=== PATIENT | female | born 1955 | race Caucasian/White ===

== ENCOUNTER 2017-07-09 05:48 | Inpatient (IN) | payer BC ==
--- NOTE | 2017-07-09 06:03 | ED ---
General Adult HPI - General Source: patient, RN notes reviewed, old records reviewed Mode of arrival: wheelchair Limitations: no limitations <Jeff Melgoza - Last Filed: 07/09/17 06:10> <Angel Keys - Last Filed: 07/09/17 08:24> - General Chief complaint: Chest Pain Stated complaint: Chest pain, nausea Time Seen by Provider: 07/09/17 06:02 - History of Present Illness Initial comments: This is a 61-year-old female who presents today with evaluation regards to chest pain and back pain. Patient is history of high cholesterol no history of smoking. Patient denies any other heart history. She was evaluated with her heart years ago greater than 10 years ago with no findings, check CAT scan at the time. Patient states symptoms have been episodic for 3 days. Patient gets pain in the left side of her chest radiating to her back mild nausea some clamminess. Patient states again symptoms are episodic with no modifying factors. Patient is about to travel to [place] currently and which brings her to the ER today because she wanted to be checked out before getting in a car. Patient at this time states her symptoms are mild is gone (Jeff Melgoza) - Related Data Previous Rx's Medication Instructions Recorded Famotidine [Pepcid] 20 mg PO DAILY #14 tablet 11/28/14 Allergies Allergy/AdvReac Type Severity Reaction Status Date / Time No Known Allergies Allergy Verified 11/27/14 23:21 Review of Systems ROS Other: All systems not noted in ROS Statement are negative. <Jeff Melgoza - Last Filed: 07/09/17 06:10> ROS Other: All systems not noted in ROS Statement are negative. <Angel Keys - Last Filed: 07/09/17 08:24> ROS Statement: Those systems with pertinent positive or pertinent negative responses have been documented in the HPI. Past Medical History Past Medical History: No Reported History, Hyperlipidemia History of Any Multi-Drug Resistant Organisms: None Reported Past Surgical History: Appendectomy, Section Past Psychological History: No Psychological Hx Reported Smoking Status: Never smoker Past Alcohol Use History: None Reported Past Drug Use History: None Reported <Jeff Melgoza - Last Filed: 07/09/17 06:10> General Exam Limitations: no limitations General appearance: alert, in no apparent distress Head exam: Present: atraumatic, normocephalic, normal inspection Eye exam: Present: normal appearance, PERRL, EOMI. Absent: scleral icterus, conjunctival injection, periorbital swelling ENT exam: Present: normal exam, mucous membranes moist Neck exam: Present: normal inspection. Absent: tenderness, meningismus, lymphadenopathy Respiratory exam: Present: normal lung sounds bilaterally. Absent: respiratory distress, wheezes, rales, rhonchi, stridor Cardiovascular Exam: Present: regular rate, normal rhythm, normal heart sounds. Absent: systolic murmur, diastolic murmur, rubs, gallop, clicks GI/Abdominal exam: Present: soft, normal bowel sounds. Absent: distended, tenderness, guarding, rebound, rigid Extremities exam: Present: normal inspection, full ROM, normal capillary refill. Absent: tenderness, pedal edema, joint swelling, calf tenderness Back exam: Present: normal inspection Neurological exam: Present: alert, oriented X3, CN II-XII intact Psychiatric exam: Present: normal affect, normal mood Skin exam: Present: warm, dry, intact, normal color. Absent: rash <Jeff Melgoza - Last Filed: 07/09/17 06:10> Vital Signs 07/09/17 07/09/17 07/09/17 05:50 06:26 06:28 Temperature 96.9 F L Pulse Rate 63 70 70 Respiratory 16 18 18 Rate Blood Pressure 171/83 179/89 176/80 O2 Sat by Pulse 98 100 100 Oximetry 07/09/17 07:06 Temperature Pulse Rate 77 Respiratory 18 Rate Blood Pressure 159/79 O2 Sat by Pulse 100 Oximetry EKG Findings - EKG Comments: EKG Findings:: EKG shows normal sinus rhythm rate of 71, VA 188, QRS 88, QTC 4 to <Jeff Melgoza - Last Filed: 07/09/17 06:10> Medical Decision Making <Jeff Melgoza - Last Filed: 07/09/17 06:10> - Lab Data Result diagrams: 07/09/17 06:05 07/09/17 06:05 <Angel Keys - Last Filed: 07/09/17 08:24> - Medical Decision Making Old female presenting with 3 days of chest pain and back pain. Pain is associated with nausea. Patient has no known coronary artery history herself, she does have a very strong family history, including a brother at the age of 36. Patient's blood pressure elevated on initial presentation with chest and back pain, CT angiography is obtained for dissection, this is negative for dissection or pulmonary embolism. EKG no signs of definitive ischemia. Although patient is pain-free at the time of reevaluation. Laboratory studies reveal white blood cell count 7.2, hemoglobin stable, electrolytes within normal limits, troponin is negative. Patient's symptoms are concerning for angina and given her family history she will be kept for serial cardiac enzymes and cardiology consult. (Angel Keys) - Lab Data Lab Results 07/09/17 07/09/17 07/09/17 Range/Units 06:05 06:05 06:05 WBC 7.2 (3.8-10.6) k/uL RBC 5.03 (3.80-5.40) m/uL Hgb 14.9 (11.4-16.0) gm/dL Hct 42.5 (34.0-46.0) % MCV 84.6 (80.0-100.0) fL MCH 29.7 (25.0-35.0) pg MCHC 35.1 (31.0-37.0) g/dL RDW 11.9 (11.5-15.5) % Plt Count 264 (150-450) k/uL Neutrophils % 65 % Lymphocytes % 28 % Monocytes % 5 % Eosinophils % 1 % Basophils % 0 % Neutrophils # 4.7 (1.3-7.7) k/uL Lymphocytes # 2.0 (1.0-4.8) k/uL Monocytes # 0.3 (0-1.0) k/uL Eosinophils # 0.0 (0-0.7) k/uL Basophils # 0.0 (0-0.2) k/uL PT (9.0-12.0) sec INR (<1.2) APTT (22.0-30.0) sec D-Dimer (<0.60) mg/L FEU Sodium 145 (137-145) mmol/L Potassium 4.0 (3.5-5.1) mmol/L Chloride 106 (98-107) mmol/L Carbon Dioxide 26 (22-30) mmol/L Anion Gap 13 mmol/L BUN 19 H (7-17) mg/dL Creatinine 0.79 (0.52-1.04) mg/dL Est GFR (CKD-EPI)AfAm >90 (>60 ml/min/1.73 sqM) Est GFR (CKD-EPI)NonAf 82 (>60 ml/min/1.73 sqM) Glucose 126 H (74-99) mg/dL Calcium 9.7 (8.4-10.2) mg/dL Magnesium 2.0 (1.6-2.3) mg/dL Total Bilirubin 0.7 (0.2-1.3) mg/dL AST 20 (14-36) U/L ALT 29 (9-52) U/L Alkaline Phosphatase 46 (38-126) U/L Total Creatine Kinase 86 (30-135) U/L CK-MB (CK-2) 0.9 (0.0-2.4) ng/mL CK-MB (CK-2) Rel Index 1.0 Troponin I <0.012 (0.000-0.034) ng/mL NT-Pro-B Natriuret Pep pg/mL Total Protein 7.2 (6.3-8.2) g/dL Albumin 4.3 (3.5-5.0) g/dL Lipase 147 (23-300) U/L 07/09/17 07/09/17 Range/Units 06:05 06:05 WBC (3.8-10.6) k/uL RBC (3.80-5.40) m/uL Hgb (11.4-16.0) gm/dL Hct (34.0-46.0) % MCV (80.0-100.0) fL MCH (25.0-35.0) pg MCHC (31.0-37.0) g/dL RDW (11.5-15.5) % Plt Count (150-450) k/uL Neutrophils % % Lymphocytes % % Monocytes % % Eosinophils % % Basophils % % Neutrophils # (1.3-7.7) k/uL Lymphocytes # (1.0-4.8) k/uL Monocytes # (0-1.0) k/uL Eosinophils # (0-0.7) k/uL Basophils # (0-0.2) k/uL PT 10.2 (9.0-12.0) sec INR 1.0 (<1.2) APTT 22.8 (22.0-30.0) sec D-Dimer 1.73 H (<0.60) mg/L FEU Sodium (137-145) mmol/L Potassium (3.5-5.1) mmol/L Chloride (98-107) mmol/L Carbon Dioxide (22-30) mmol/L Anion Gap mmol/L BUN (7-17) mg/dL Creatinine (0.52-1.04) mg/dL Est GFR (CKD-EPI)AfAm (>60 ml/min/1.73 sqM) Est GFR (CKD-EPI)NonAf (>60 ml/min/1.73 sqM) Glucose (74-99) mg/dL Calcium (8.4-10.2) mg/dL Magnesium (1.6-2.3) mg/dL Total Bilirubin (0.2-1.3) mg/dL AST (14-36) U/L ALT (9-52) U/L Alkaline Phosphatase (38-126) U/L Total Creatine Kinase (30-135) U/L CK-MB (CK-2) (0.0-2.4) ng/mL CK-MB (CK-2) Rel Index Troponin I (0.000-0.034) ng/mL NT-Pro-B Natriuret Pep 108 pg/mL Total Protein (6.3-8.2) g/dL Albumin (3.5-5.0) g/dL Lipase (23-300) U/L Disposition <Jeff Melgoza - Last Filed: 07/09/17 06:10> Decision to Admit Reason: Admit from EC Decision Date: 07/09/17 Decision Time: 08:24 <Angel Keys - Last Filed: 07/09/17 08:24> Clinical Impression: Chest pain Disposition: ADMITTED IP TO THIS HOSP Condition: Stable Referrals: Greyson Schaefer DO [Primary Care Provider] - 1-2 days
[2017-07-09] MEDS ORDERED: RX INFO: IV CONTRAST WAS GIVEN 1 EACH MISC MISCELLANE PRN ×2 (06:09→06:58)
[2017-07-09] MEDS ORDERED: SODIUM CHLORIDE 0.9% 1,000 ML IV STA ×2 (06:09)
[2017-07-09] MEDS ORDERED: LABETALOL 5 MG/ML VIAL MDV IVP STA (06:12)
[2017-07-09 06:37] LABS: Basophils % (A) 0 %; Eosinophils % (A) 1 %; HCT 42.5 % (34.0-46.0); HGB 14.9 gm/dL (11.4-16.0); Lymphocytes % (A) 28 %; MCH 29.7 pg (25.0-35.0); MCHC 35.1 g/dL (31.0-37.0); MCV 84.6 fL (80.0-100.0); Mean Platelet Volume 6.9; Monocytes # (A) 0.3 k/uL (0-1.0); Monocytes % (A) 5 %; Neutrophils # (A) 4.7 k/uL (1.3-7.7); Neutrophils % (A) 65 %; Platelet Count 264 k/uL (150-450); RBC 5.03 m/uL (3.80-5.40); RDW 11.9 % (11.5-15.5); WBC 7.2 k/uL (3.8-10.6)
[2017-07-09 06:50] LABS: D-Dimer 1.73 mg/L FEU (<0.60); Partial Thromboplastin Time 22.8 sec (22.0-30.0); Prothrombin Time 10.2 sec (9.0-12.0)
[2017-07-09 06:58] LABS: ALT 29 U/L (9-52); AST 20 U/L (14-36); Albumin 4.3 g/dL (3.5-5.0); Alkaline Phosphatase 46 U/L (38-126); Anion Gap 13 mmol/L; Blood Urea Nitrogen 19 mg/dL (7-17); Calcium 9.7 mg/dL (8.4-10.2); Carbon Dioxide 26 mmol/L (22-30); Chloride 106 mmol/L (98-107); Glucose 126 mg/dL (74-99); Lipase 147 U/L (23-300); Sodium 145 mmol/L (137-145); Total Bilirubin 0.7 mg/dL (0.2-1.3); Total Protein 7.2 g/dL (6.3-8.2)
[2017-07-09 07:04] LABS: Creatine Kinase 86 U/L (30-135)
[2017-07-09 07:16] LABS: Creatine Kinase MB 0.9 ng/mL (0.0-2.4); Troponin I <0.012 ng/mL (0.000-0.034)
--- NOTE | 2017-07-09 08:02 | CT ---
EXAMINATION TYPE: CT angio chest DATE OF EXAM: 07/09/2017 COMPARISON: CTA chest November 28, 2014. HISTORY: chest pain with elevated d-dimer. CT DLP: 228.1 mGycm. Automated Exposure Control for Dose Reduction was Utilized. CONTRAST: CTA scan of the thorax is performed with IV Contrast, patient injected with 100 mL of Omnipaque 350, pulmonary embolism protocol. MIP Images are created on CT scanner and reviewed. FINDINGS: LUNGS: There is persistent left basilar linear scarring. There is no new suspicious focal consolidati on or groundglass opacity. No pleural effusion or pneumothorax is seen bilaterally. No suspicious par enchymal nodule or mass is identified. Tracheobronchial tree is patent. MEDIASTINUM: There is slightly suboptimal bolus with near equal contrast the right and left heart sys tems but there is no CT evidence for pulmonary embolism. There are no greater than 1 cm hilar or med iastinal lymph nodes. No cardiomegaly or pericardial effusion is seen. There is 4 vessel aortic arc h which is normal variant redemonstrated. OTHER: Please refer to same day CT abdomen and pelvis report for complete details of the upper abdome n. There is mild to moderate multilevel spurring in the visualized thoracic spine. IMPRESSION: No CT evidence for acute pulmonary embolism. No suspicious acute pulmonary process.
--- NOTE | 2017-07-09 08:10 | CT ---
EXAMINATION TYPE: CT abdomen pelvis w con DATE OF EXAM: 07/09/2017 HISTORY: LLQ pain CT DLP: 1384.2mGycm Automated Exposure Control for Dose Reduction was Utilized. CONTRAST: CT scan of the abdomen and pelvis is performed without oral and with IV Contrast, patient injected wi th 100 mL of Omnipaque 350. COMPARISON: MRI pelvis dated 05/28/2013. FINDINGS: LUNG BASES: Please refer to same day CT abdomen report for complete details. LIVER/GB: No significant abnormality is appreciated. PANCREAS: No significant abnormality is seen. SPLEEN: No significant abnormality is seen. ADRENALS: Subcentimeter nodular thickening to left adrenal gland is nonspecific but favors benign hyp erplasia. KIDNEYS: There is symmetric cortical medullary uptake and excretion from both kidneys without evidenc e of concerning renal mass or hydronephrosis. Bladder wall thickness is upper limits of normal. BOWEL: Evaluation bowel is slightly suboptimal secondary to lack of enteric contrast. There is no chris picious small or large bowel dilatation. There is no significant colonic diverticulosis or convincing CT evidence for acute diverticulitis. UTERUS/ADNEXA: There is heterogeneous anteverted uterus with lobulation as well as calcification, und erlying fibroids are suspected and confirmed on prior pelvic MRI. LYMPH NODES: No greater than 1cm abdominal or pelvic lymph nodes are appreciated. OSSEOUS STRUCTURES: There is redemonstration of lumbosacral bilateral multilevel nerve sheath dural e ctasia or meningoceles extending into the presacral space. No significant change from prior pelvic MR I. OTHER: No significant additional abnormality is seen. IMPRESSION: No significant new or acute finding is seen to account for patient's clinical symptoms.
[2017-07-09] MEDS ORDERED: ASPIRIN 325 MG TAB PO STA (08:23)
[2017-07-09] MEDS ORDERED: ONDANSETRON 4 MG/2 ML VIAL IVP PRN (08:24)
[2017-07-09] MEDS ORDERED: NALOXONE 0.4 MG/ML 1 ML VIAL IV PRN (08:24)
[2017-07-09 11:59] LABS: Creatine Kinase 68 U/L (30-135)
[2017-07-09 12:11] LABS: Creatine Kinase MB 0.6 ng/mL (0.0-2.4); Troponin I <0.012 ng/mL (0.000-0.034)
--- NOTE | 2017-07-09 12:46 | CONS ---
CONSULTATION This patient is a 61-year-old female who has been experiencing recurrent interscapular discomfort and vague discomfort in the chest for the last 2-3 days. She came in today because she was getting a bit worried, as she had to go to [place] and take a long car ride. Her first 12-lead ECG showed sinus rhythm without any definite ST-segment abnormalities. Her chest CT did not show any evidence for pulmonary embolism. She does have gallstones. LABS: Reviewed. Hemoglobin is normal. Her D-dimer was elevated. First cardiac enzyme is normal. Amylase and lipase are normal. Liver function tests are normal. Glucose is elevated at 126. REVIEW OF SYSTEMS: No fever, chills or rigors. No cough or expectoration. No nausea, vomiting or diarrhea. No hematuria or dysuria. No strokes or seizures. No skin lesions. No musculoskeletal complaints. PAST HISTORY: 1. Pre-diabetes. 2. Dyslipidemia. Recently started on Pravachol and dose was increased recently to 20 mg p.o. daily. HOME MEDICATIONS: 1. Famotidine. 2. Pravachol. ALLERGIES: NO KNOWN DRUG ALLERGIES. SOCIAL HISTORY: She has never been a smoker. PAST SURGERIES: 1. Appendectomy. 2. section. PHYSICAL EXAMINATION: Her blood pressure is elevated consistently 159/79 mmHg. Heart rate is in the 70s. Head and neck examination is normal. Heart sounds are normal. Lungs are clear on auscultation. Extremities are warm; no edema. IMPRESSION: 1. Atypical chest discomfort. First set of cardiac enzymes is normal. 2. Pre-diabetes. 3. The patient has dyslipidemia and is on Pravachol 20 mg p.o. daily. SUGGEST: A baby aspirin, atorvastatin 20 mg p.o. daily. Three sets of cardiac enzymes. Repeat ECG. Further recommendations to follow thereafter. MMODL / IJN: [id number] /
[2017-07-09] MEDS: ATORVASTATIN 20 MG TAB PO SCH (13:08)
--- NOTE | 2017-07-09 13:16 | HP ---
HISTORY AND PHYSICAL DATE OF ADMISSION: 07/09/2017 PRESENTING COMPLAINT: Chest pain. HISTORY OF PRESENTING COMPLAINT: This is a very pleasant 61-year-old patient of Dr. Schaefer. Chronic stable medical conditions include hypercholesteremia. The patient noticed that she was having upper back discomfort with walking, even sometimes at rest, and occasionally anterior chest wall discomfort. Sometimes the two are unrelated. There is no shortness of breath. No dizziness. No lightheadedness. The patient did get some episodes of nausea and occasionally felt clammy. The patient was due to go to [place] this morning, and because of these symptoms coming on, she decided to come into the hospital. The patient is otherwise rather active with no prior cardiac history. She came in with her . The patient has a strong family history. REVIEW OF SYSTEMS: CONSTITUTIONAL: None. HEENT: None. RESPIRATORY: None. CARDIOVASCULAR: As above. GASTROINTESTINAL: None. GENITOURINARY: None. MUSCULOSKELETAL: None. DERMATOLOGICAL: None. HEMATOLOGICAL: None. LYMPHATICS: None. PSYCHIATRY: None. NEUROLOGICAL: None. PAST MEDICAL HISTORY: Hypercholesteremia. PAST SURGICAL HISTORY: 1. Appendectomy. 2. . SOCIAL HISTORY: No smoking. No alcohol. The patient used to sell real estate. . FAMILY HISTORY: Both her parents had heart disease in their 60s. Brother heart disease age of 36. Additionally history of colon cancer and COPD. HOME MEDICATIONS: Pravachol 20 mg a day. ALLERGIES: NONE. PHYSICAL EXAMINATION: Temperature 97.9, pulse 71, respiration 14, blood pressure 136/69, pulse ox 97% on room air. GENERAL APPEARANCE: Average build, sitting up, comfortable. EYES: Pupils equal. Conjunctivae normal. HEENT: External appearance of nose and ears normal. Oral cavity normal. NECK: JVD not raised. Mass not palpable. RESPIRATORY: Effort normal. Lungs are clear. CARDIOVASCULAR: First and second sounds normal. No edema. ABDOMEN: Soft, nontender. Liver and spleen not palpable. LYMPHATIC: No lymph node palpable in neck or axillae. PSYCHIATRY: Alert and oriented x3. Mood and affect normal. NEUROLOGICAL: Pupils clear. Cranial nerves grossly intact. Power and sensation grossly intact. INVESTIGATIONS: White count 7.2, hemoglobin 14.9, potassium 4.0, BUN 19, creatinine 0.79. Troponin x2 negative. EKG normal sinus rhythm. Chest CTA negative for PE. ASSESSMENT: Possible unstable angina in a patient whose cardiac risk factors include her age, strong family history and hypercholesteremia. These symptoms are new onset. Currently free of chest pain. PLAN: The patient is on aspirin, Lipitor. Cardiology Dr. Sánchez was consulted. The patient will need a stress test at some point. Care was discussed in detail with the patient and her . Questions were answered. MMODL / IJN: [id number] /
[2017-07-09] MEDS: ENOXAPARIN 40 MG/0.4 ML SYRINGE SQ SCH (14:10)
[2017-07-09 17:59] LABS: Creatine Kinase 66 U/L (30-135)
[2017-07-09 18:12] LABS: Creatine Kinase MB 0.6 ng/mL (0.0-2.4); Troponin I <0.012 ng/mL (0.000-0.034)
[2017-07-10] MEDS: ACETAMINOPHEN TAB 325 MG TAB PO PRN (08:22)
[2017-07-10] MEDS: ATORVASTATIN 20 MG TAB PO SCH (08:22)
[2017-07-10] MEDS: ASPIRIN 81 MG PO SCH (08:22)
[2017-07-10] MEDS: ENOXAPARIN 40 MG/0.4 ML SYRINGE SQ SCH (08:23)
--- NOTE | 2017-07-10 10:55 | P.PN ---
Subjective Progress Note Date: 07/10/17 Mrs. Merchant is seen today in follow-up. She has had no symptoms suggestive of angina. She has been up ambulating without difficulty. She denies any symptoms of shortness of breath, dizziness, palpitations, nausea, vomiting or diaphoresis. Cardiac enzymes are negative 3. Telemetry tracings up and unremarkable. Blood pressure 153/74 heart rate 71 afebrile maintaining oxygen saturation on room air GENERAL: Well-appearing, well-nourished and in no acute distress. NECK: Supple without JVD or thyromegaly. LUNGS: Breath sounds clear to auscultation bilaterally. Respiration equal and unlabored. No wheezes, rales or rhonchi. HEART: Regular rate and rhythm without murmurs, rubs or gallops. S1 and S2 heard. EXTREMITIES: Normal range of motion, no edema. No clubbing or cyanosis. Peripheral pulses intact and strong. ASSESSMENT 1. Chest pain, atypical. Acute coronary event has been ruled out 2. Dyslipidemia, maintained on Pravachol 3. Hypertension PLAN Recommend the patient proceed with a stress echocardiogram tomorrow morning as well as 2D echocardiogram and doppler study to assess cardiac structure and function. His been discussed with the patient and she is agreeable. We also will start her on losartan for elevated blood pressures. 50 mg daily and reevaluate this in the morning until she tolerates this medication. Further recommendations to follow. Nurse Practitioner note has been reviewed, I agree with a documented findings and plan of care. Patient was seen and examined. Objective - Vital Signs Vital signs: Vital Signs Temp 97.5 F L 07/10/17 08:00 Pulse 71 07/10/17 08:00 Resp 14 07/10/17 08:00 BP 153/74 07/10/17 08:00 Pulse Ox 98 07/10/17 08:00 Intake & Output 07/09/17 07/10/17 07/10/17 17:59 06:59 18:59 Intake Total Balance Weight Intake: Oral Other: Voiding Method # Voids - Labs CBC & Chem 7: 07/09/17 06:05 07/09/17 06:05
--- NOTE | 2017-07-10 12:15 | P.PN ---
Progress Note - Text Patient interviewed and examined today. No further recurrence of chest discomfort. Proceed with exercise stress echo tomorrow. Started on losartan 50 g by mouth daily. Home blood pressure monitoring recommended Please see full dictation by nurse practitioner
[2017-07-10] MEDS: LOSARTAN 50 MG TAB PO SCH (12:18)
--- NOTE | 2017-07-10 18:32 | PN ---
PROGRESS NOTE DATE OF SERVICE: 07/09/2017. PRESENTING COMPLAINT: Chest pain. INTERVAL HISTORY: This patient presented with what appeared to be unstable angina. Awaiting a stress test. The patient has been up and about. No further chest pain. Awaiting a stress test tomorrow. Medication for blood pressure was adjusted, which is a new diagnosis. at the bedside. REVIEW OF SYSTEMS: Done for constitutional, cardiovascular, GI, pulmonary; relevant findings as above. CURRENT MEDICATIONS: Reviewed, include Cozaar. PHYSICAL EXAMINATION: Temperature 97.8, pulse 72, respiratory 14, blood pressure 149/75, pulse ox 98% on room air. GENERAL APPEARANCE: Sitting up, comfortable. EYES: Pupil equal. Conjunctivae normal. HEENT: External appearance of nose and ears normal. Oral cavity normal. NECK: JVD not raised. Mass not palpable. RESPIRATORY: Effort normal. Lungs are clear. CARDIOVASCULAR: First and second sounds normal. No edema. ABDOMEN: Soft, nontender. Liver and spleen not palpable. PSYCHIATRY: Alert and oriented x3. Mood and affect normal. INVESTIGATIONS: Troponin x3 is negative. ASSESSMENT: 1. Possible unstable angina with cardiac risk factors. 2. Essential hypertension, new diagnosis. PLAN: Care was discussed with the patient and . Awaiting stress test tomorrow morning. MMODL / IJN: [id number] /
[2017-07-11] MEDS: ENOXAPARIN 40 MG/0.4 ML SYRINGE SQ SCH (11:03)
[2017-07-11] MEDS: ASPIRIN 81 MG PO SCH (11:03)
[2017-07-11] MEDS: ATORVASTATIN 20 MG TAB PO SCH (11:03)
--- NOTE | 2017-07-11 11:56 | P.STRESS ---
- Stress Test Note Stress Test Results/Findings: Exam Performed: stress echo exercise Exam Date: 07/11/17 Reason for Exam: CHEST PAIN Height: 5 ft 7 in Weight: 70.4 kg Protocol: EDUARDO Stage: 3 Duration of Exercise: 7:00 Resting Heart Rate: 75 Resting Blood Pressure: 149/60 Maximum Achieved Heart Rate: 154 Maximum Achieved Blood Pressure: 196/77 85% PMHR: 135 100% PMHR: 159 METS: 8.5 Technologist Comment: Stress Test Results/Findings: This is a 61-year-old female was admitted to the hospital with chest and back pain. Cardiac enzymes and EKGs were negative.. Baseline EKG showed sinus rhythm with normal UT interval and QRS duration with mild nonspecific ST-T abnormalities. Blood pressure at rest is 149/60 with pulse rate of 75. Patient walked on the Eduardo protocol for 7 minutes achieving a maximum rate of 154 with blood pressure 196/77. EKGs taken during and after the exercise showed mild J-point depression with upsloping ST segments. Patient had mild persistent ST-T abnormalities upto 10 minutes in the post exercise period, unassociated with any chest pains. Echo data: Baseline echo images show normal wall motion and thickening. Exercise echo images showed hypokinesia and lack of augmentation of wall motion and thickening in the inferolateral leads. Final impression #1. Mild ST-T abnormalities, nondiagnostic for ischemia #2. Abnormal stress echo with ischemic changes inferolateral segments.
[2017-07-11] MEDS: LOSARTAN 50 MG TAB PO SCH (12:47)
--- NOTE | 2017-07-11 13:15 | ECHOF ---
Referral Reason:cp MEASUREMENTS -------- HEIGHT: 170.2 cm WEIGHT: 70.3 kg BP: 148/60 RVIDd: 3.4 cm (< 3.3) IVSd: 1.2 cm (0.6 - 1.1) LVIDd: 4.6 cm (3.9 - 5.3) LVPWd: 1.1 cm (0.6 - 1.1) IVSs: 1.7 cm LVIDs: 3.0 cm LVPWs: 1.5 cm LA Diam: 3.2 cm (2.7 - 3.8) LAESV Index (A-L): 25.94 ml/m Ao Diam: 3.5 cm (2.0 - 3.7) AV Cusp: 2.5 cm (1.5 - 2.6) MV EXCURSION: 13.666 mm (> 18.000) MV EF SLOPE: 65 mm/s (70 - 150) EPSS: 0.7 cm MV E Prasanth: 0.81 m/s MV DecT: 195 ms MV A Prasanth: 0.96 m/s MV E/A Ratio: 0.85 FINDINGS -------- Sinus rhythm. This was a technically good study. The left ventricular size is normal. There is borderline concentric left ventricular hypertrophy. Overall left ventricular systolic function is normal with, an EF between 55 - 60 %. The right ventricle is mildly enlarged. Normal LA size by volume 22+/-6 ml/m2. The right atrium is normal in size. The aortic valve is trileaflet and appears structurally normal. The mitral valve leaflets are mildly thickened. The tricuspid valve appears structurally normal. The pulmonic valve was not well visualized. The aortic root size is normal. Normal inferior vena cava with normal inspiratory collapse consistent with estimated right atrial pre ssure of 5 mmHg. There is no pericardial effusion. CONCLUSIONS -------- 1. Sinus rhythm. 2. This was a technically good study. 3. The left ventricular size is normal. 4. There is borderline concentric left ventricular hypertrophy. 5. Overall left ventricular systolic function is normal with, an EF between 55 - 60 %. 6. The right ventricle is mildly enlarged. 7. Normal LA size by volume 22+/-6 ml/m2. 8. The right atrium is normal in size. 9. The aortic valve is trileaflet and appears structurally normal. 10. The mitral valve leaflets are mildly thickened. 11. The tricuspid valve appears structurally normal. 12. The pulmonic valve was not well visualized. 13. The aortic root size is normal. 14. Normal inferior vena cava with normal inspiratory collapse consistent with estimated right atrial pressure of 5 mmHg. 15. There is no pericardial effusion. R[employer] MAIL CARRIER: January Clark RDCS
[2017-07-11] MEDS ORDERED: SODIUM CHLORIDE 0.9% 1,000 ML in EMPTY BAG 1 BAG IV ONE (13:58)
[2017-07-11] MEDS ORDERED: ALPRAZolam 0.25 MG TAB PO PRN (13:58)
[2017-07-11] MEDS ORDERED: ALPRAZolam 0.5 MG TAB PO PRN (13:58)
[2017-07-11] MEDS ORDERED: NITROGLYCERIN SL TABS 0.4 MG TAB SUBLINGUAL PRN (13:58)
--- NOTE | 2017-07-11 13:58 | P.PN ---
Subjective Progress Note Date: 07/11/17 Mrs. Merchant is seen and examined today. She denies any further symptoms of chest pain. Stress test was completed as ordered. Losartan was added to her regimen yesterday for elevated blood pressures. However this was held for some reason. Blood pressures overnight have been consistently elevated as high as 182 systolic. Discussed with her the importance of maintaining appropriate blood pressure. Stress test findings indicted evidence of hypokinesia of inferior wall with mild ST changes on EKG. Objective - Vital Signs Vital signs: Vital Signs Temp 98 F 07/11/17 11:40 Pulse 70 07/11/17 11:40 Resp 16 07/11/17 11:40 BP 151/83 07/11/17 11:40 Pulse Ox 97 07/11/17 11:40 Intake & Output 07/10/17 07/11/17 07/11/17 18:59 06:59 18:59 Other: Voiding Method Toilet Toilet Toilet # Voids 2 - Exam Blood pressure 151/83 heart rate 70 afebrile maintaining oxygen saturation on room air. GENERAL: Well-appearing, well-nourished and in no acute distress. NECK: Supple without JVD or thyromegaly. LUNGS: Breath sounds clear to auscultation bilaterally. Respiration equal and unlabored. No wheezes, rales or rhonchi. HEART: Regular rate and rhythm without murmurs, rubs or gallops. S1 and S2 heard. EXTREMITIES: Normal range of motion, no edema. No clubbing or cyanosis. Peripheral pulses intact and strong. - Labs CBC & Chem 7: 07/09/17 06:05 07/09/17 06:05 Assessment and Plan Assessment: ASSESSMENT 1. Chest pain with positive stress test in inferior-lateral wall 2. Dyslipidemia 3. New onset hypertension PLAN Recommend proceeding with cardiac catheterization to further study the positive stress test findings. I have discussed the risks, benefits and alternative therapies for the above-mentioned procedure and for both sedation/analgesia as well as necessary blood product administration, if indicated, as they pertain to this patient. The patient has indicated understanding and acceptance of the risks and procedures discussed. Questions have been answered appropriately and she is agreeable to move forward with above stated procedure. She has been boarded for 0900 tomorrow morning and will be NPO after midnight tonight. Nurse Practitioner note has been reviewed, I agree with a documented findings and plan of care. Patient was seen and examined.
[2017-07-11] MEDS ORDERED: ASPIRIN 81 MG PO SCH (14:02)
--- NOTE | 2017-07-11 16:12 | PN ---
PROGRESS NOTE DATE OF SERVICE: 07/11/17 PRESENTING COMPLAINT: Chest pain. INTERVAL HISTORY: This patient admitted with unstable angina. Has had no more episodes of chest pain. Did undergo stress echocardiogram today that showed wall motion abnormality. The patient is now being scheduled for cardiac catheterization. Blood pressure medications are being adjusted. REVIEW OF SYSTEMS: Done for constitutional, cardiovascular, GI, pulmonary, relevant findings as above. CURRENT MEDICATIONS: Reviewed that include Cozaar, Lipitor, aspirin. PHYSICAL EXAMINATION: Temperature 98, pulse 70, respiration 16, blood pressure 115/83, pulse ox 97% on room air. General appearance: Sitting up in a chair, comfortable. Eyes: Pupils are equal. Conjunctivae normal. HEENT external appearance of nose and ears normal. Oral cavity normal. Neck JVD not raised. Mass not palpable. Respiratory effort normal. Lungs are clear. Cardiovascular 1st and second sounds normal. No edema. ABDOMEN: Soft, nontender. Liver and spleen not palpable. Psychiatry: Alert and oriented times three. Mood and affect is normal. INVESTIGATIONS: Stress echocardiogram shows inferior wall motion abnormality. No blood work from today. ASSESSMENT: 1. Unstable angina, now with a stress test coming back positive in a patient with cardiac risk factors. 2. Essential hypertension. PLAN: Continue current medication and treatment plan. We will check a lipid profile in the morning and we will add Lopressor. Follow with Cardiology. MMODL / IJN: [id number] /
--- NOTE | 2017-07-11 16:18 | PN ---
PROGRESS NOTE ADDENDUM: Correction: My note dictated on July 10, 2017 at 1713 pm date transcribed on July 10, 2017 at 1824 pm, the correct date of service should read 07/10/17. MMCLARITZAL / IJN: [id number] /
[2017-07-11] MEDS: METOPROLOL TARTRATE 25 MG TAB PO SCH ×2 (17:38→19:38)
[2017-07-12] MEDS ORDERED: ASPIRIN 325 MG TAB PO STA (06:31)
[2017-07-12] MEDS: ATORVASTATIN 80 MG TAB PO SCH (06:34)
[2017-07-12] MEDS: LOSARTAN 50 MG TAB PO SCH (06:35)
[2017-07-12 07:30] LABS: Anion Gap 9 mmol/L; Blood Urea Nitrogen 18 mg/dL (7-17); Calcium 9.5 mg/dL (8.4-10.2); Carbon Dioxide 27 mmol/L (22-30); Chloride 107 mmol/L (98-107); Cholesterol 150 mg/dL (<200); Glucose 120 mg/dL (74-99); HDL Cholesterol 44 mg/dL (40-60); LDL Cholesterol,Calculated 84 mg/dL (0-99); Potassium 4.4 mmol/L (3.5-5.1); Sodium 143 mmol/L (137-145); Triglycerides 110 mg/dL (<150)
[2017-07-12] MEDS ORDERED: fentaNYL (PF) 50 MCG/ML 2 ML AMP ONE (08:45)
[2017-07-12] MEDS ORDERED: HEPARIN SODIUM 1,000 UN/ML (10ML VL) ONE (08:45)
[2017-07-12] MEDS ORDERED: MIDAZOLAM 2 MG/2 ML VIAL ONE (08:45)
[2017-07-12] MEDS ORDERED: LIDOCAINE 2% INJ 20 MG/ML (20 ML MDV) ONE (08:45)
[2017-07-12] MEDS ORDERED: VERAPAMIL 2.5 MG/ML 2 ML AMP ONE (08:46)
[2017-07-12] MEDS ORDERED: IV FLUID CONTINUATION 750 ML IV ONE (09:10)
[2017-07-12] MEDS: MIDAZOLAM 2 MG/2 ML VIAL IVP ONE ×2 (09:19→10:29)
[2017-07-12] MEDS ORDERED: fentaNYL (PF) 50 MCG/ML 2 ML AMP IVP ONE (09:19)
[2017-07-12] MEDS ORDERED: LIDOCAINE 2% INJ 20 MG/ML SQ ONE (09:25)
[2017-07-12] MEDS: VERAPAMIL SYRINGE (5 MG/10 ML) INTRAARTER ONE ×2 (09:28→11:02)
[2017-07-12] MEDS ORDERED: HEPARIN SODIUM 1,000 UN/ML (10ML VL) IV ONE (09:29)
[2017-07-12] MEDS ORDERED: BIVALIRUDIN BOLUS 250 MG/50 ML IV ONE (10:32)
[2017-07-12] MEDS ORDERED: BIVALIRUDIN 250 MG in SODIUM CHLORIDE 0.9% 50 ML IV ONE (10:34)
[2017-07-12] MEDS ORDERED: hydrALAZINE HCL 20 MG/ML 1 ML VIAL ONE (10:57)
[2017-07-12] MEDS ORDERED: hydrALAZINE HCL 20 MG/ML 1 ML VIAL IVP ONE (10:58)
[2017-07-12] MEDS ORDERED: NITROGLYCERIN 1000MCG/10ML SYRINGE INTRACORON ONE (11:00)
[2017-07-12] MEDS ORDERED: CLOPIDOGREL 75 MG TAB ONE ×2 (11:02)
[2017-07-12] MEDS ORDERED: CLOPIDOGREL 75 MG TAB PO ONE (11:06)
[2017-07-12] MEDS ORDERED: IOHEXOL 350 MG/ML 125ML BOTTLE INJ ONE (11:06)
[2017-07-12] MEDS ORDERED: NITROGLYCERIN SL TABS 0.4 MG TAB SUBLINGUAL PRN (11:08)
[2017-07-12] MEDS ORDERED: RX INFO: IV CONTRAST WAS GIVEN 1 EACH MISC MISCELLANE PRN (11:08)
[2017-07-12] MEDS ORDERED: MAG HYDROX/AL HYDROX/SIMETH 30 ML CUP PO PRN (11:08)
[2017-07-12] MEDS ORDERED: ZOLPIDEM 5 MG TAB PO PRN (11:08)
[2017-07-12] MEDS ORDERED: ATROPINE SULFATE 0.1 MG/ML 10ML SYRINGE IV PRN (11:08)
[2017-07-12] MEDS ORDERED: SODIUM CHLORIDE 0.9% 1,000 ML IV SCH (11:15)
--- NOTE | 2017-07-12 11:30 | ECHOS ---
- Stress Test Note Stress Test Results/Findings: Exam Performed: stress echo exercise Exam Date: 07/11/17 Reason for Exam: CHEST PAIN Height: 5 ft 7 in Weight: 70.4 kg Protocol: EDUARDO Stage: 3 Duration of Exercise: 7:00 Resting Heart Rate: 75 Resting Blood Pressure: 149/60 Maximum Achieved Heart Rate: 154 Maximum Achieved Blood Pressure: 196/77 85% PMHR: 135 100% PMHR: 159 METS: 8.5 Technologist Comment: Stress Test Results/Findings: This is a 61-year-old female was admitted to the hospital with chest and back pain. Cardiac enzymes and EKGs were negative.. Baseline EKG showed sinus rhythm with normal MT interval and QRS duration with mild nonspecific ST-T abnormalities. Blood pressure at rest is 149/60 with pulse rate of 75. Patient walked on the Eduardo protocol for 7 minutes achieving a maximum rate of 154 with blood pressure 196/77. EKGs taken during and after the exercise showed mild J-point depression with upsloping ST segments. Patient had mild persistent ST-T abnormalities upto 10 minutes in the post exercise period, unassociated with any chest pains. Echo data: Baseline echo images show normal wall motion and thickening. Exercise echo images showed hypokinesia and lack of augmentation of wall motion and thickening in the inferolateral leads. Final impression #1. Mild ST-T abnormalities, nondiagnostic for ischemia #2. Abnormal stress echo with ischemic changes involving the inferolateral segments. KAYLIN
--- NOTE | 2017-07-12 12:43 | PTCA ---
PERCUTANEOUSTRANS CORORONARY ANGIOGRAPHY PERCUTANEOUS CORONARY INTERVENTION: DATE OF SERVICE: 07/12/2017 PERFORMING PHYSICIAN: Carl Mays MD, airline flight attendant. PROCEDURE PERFORMED: Successful stenting of the of the ramus intermedius coronary artery using 2.75 x 24 mm Promus drug-eluting stent with good angiographic results. INDICATION: This is a pleasant 61-year-old female patient who presented to the hospital with chest discomfort and underwent stress test and that showed that showed lateral ischemia. She underwent heart catheterization by Dr. Mckeon and was found to have severe disease involving the first diagonal/ramus intermedius coronary artery and the plan was to proceed with percutaneous coronary intervention. APPROACH: Right radial artery. COMPLICATION: None. LEVEL OF SEDATION: Moderate with sedation length of 37 minutes. PROCEDURE DESCRIPTION: After diagnostic heart catheterization was performed by Dr. Mckeon and after reviewing the angiogram, we decided to pursue with intervention on the diagonal. Anticoagulation was initiated using Angiomax. Subsequently I did engage the left main using JL3 guide. A whisper wire initially tried then I was able to wire the LAD using a run-through wire. After that I did PTCA ballooning using 2.5 mm balloon. After that I deployed, 2.75 x 24 mm Promus drug-eluting stent where the stent was positioned under fluoroscopy guidance and deployed under 11 atmospheres for 20 seconds. The following angiogram showed good angiographic results and the procedure was completed without any complication. POSTPROCEDURE MANAGEMENT: 1. Dual anti-platelet therapy. 2. Risk factor modifications. 3. Follow up with the patient. MMODL / IJN: [id number] /
[2017-07-12] MEDS: ACETAMINOPHEN TAB 325 MG TAB PO PRN (12:57)
--- NOTE | 2017-07-12 14:58 | PN ---
PROGRESS NOTE DATE OF SERVICE: 07/12/17. PRESENTING COMPLAINT: Chest pain. INTERVAL HISTORY: The patient presents with unstable angina and had a positive stress test. Today underwent intervention with stenting to the ramus intermedius. The patient is in the extended care unit with the . No chest pain or short of breath. The patient had a radial approach access. REVIEW OF SYSTEMS: Done for constitutional, cardiovascular, GI, pulmonary; relevant findings as above. CURRENT MEDICATIONS: Reviewed that include aspirin, Lipitor, Plavix. EXAMINATION: Pulse 80, respiratory 18, blood pressure 158/73, pulse ox 98% on room air. GENERAL APPEARANCE: Lying in bed, comfortable. EYES: Pupils equal. Conjunctivae normal. HEENT: External appearance of nose and ears normal. Oral cavity normal. NECK: JVD not raised. Mass not palpable. RESPIRATORY: Effort normal, lungs are clear. CARDIOVASCULAR: First and second sounds are normal. No edema. ABDOMEN: Soft, nontender. Liver and spleen not palpable. PSYCHIATRY: Alert and oriented x3. Mood and affect normal. INVESTIGATIONS: Potassium 4.4, BUN 18, creatinine 0.81. ASSESSMENT: 1. Coronary artery disease with intervention angioplasty and stent to the ramus intermedius. 2. Unstable angina, present on admission. 3. Essential hypertension. PLAN: Continue current medication and treatment plan. Care was discussed with the patient's . Questions were answered. MMODL / IJN: [id number] /
[2017-07-12] MEDS: ENOXAPARIN 40 MG/0.4 ML SYRINGE SQ SCH (22:02)
[2017-07-12] MEDS: METOPROLOL TARTRATE 25 MG TAB PO SCH (22:03)
[2017-07-13 04:30] VITALS: TEMP 98.7
[2017-07-13 07:07] LABS: Basophils % (A) 0 %; Eosinophils % (A) 0 %; HCT 40.4 % (34.0-46.0); HGB 13.7 gm/dL (11.4-16.0); Lymphocytes # (A) 1.7 k/uL (1.0-4.8); Lymphocytes % (A) 23 %; MCH 29.1 pg (25.0-35.0); MCHC 33.9 g/dL (31.0-37.0); MCV 85.8 fL (80.0-100.0); Mean Platelet Volume 7.1; Monocytes # (A) 0.4 k/uL (0-1.0); Monocytes % (A) 5 %; Neutrophils # (A) 5.1 k/uL (1.3-7.7); Neutrophils % (A) 70 %; Platelet Count 271 k/uL (150-450); RBC 4.71 m/uL (3.80-5.40); WBC 7.4 k/uL (3.8-10.6)
[2017-07-13 07:19] LABS: Anion Gap 8 mmol/L; Blood Urea Nitrogen 14 mg/dL (7-17); Calcium 9.2 mg/dL (8.4-10.2); Carbon Dioxide 26 mmol/L (22-30); Chloride 110 mmol/L (98-107); Glucose 113 mg/dL (74-99); Sodium 144 mmol/L (137-145)
[2017-07-13] MEDS ORDERED: CLOPIDOGREL 75 MG TAB PO SCH (09:00)
[2017-07-13] MEDS ORDERED: ASPIRIN 325 MG TAB PO SCH (09:00)
[2017-07-13] MEDS: ATORVASTATIN 80 MG TAB PO SCH (09:20)
[2017-07-13] MEDS: ENOXAPARIN 40 MG/0.4 ML SYRINGE SQ SCH (09:21)
[2017-07-13] MEDS: LOSARTAN 50 MG TAB PO SCH (09:21)
[2017-07-13] MEDS ORDERED: METOPROLOL TARTRATE 25 MG TAB PO SCH (11:00)
--- NOTE | 2017-07-13 11:57 | P.PN ---
Subjective Patient is doing well. She has no chest discomfort no undue shortness of breath. She is sitting in a chair. She looks comfortable She is worried about her upcoming trip to [facility] Heart sounds are normal normal S1 normal S2 Breath sounds are clear no rhonchi no crackles Abdomen is soft nontender Extended is warm edema Pulse in the 70s, blood pressure 158/76 mmHg respirations normal afebrile Impression Patient presented with anginal like symptoms, positive stress test coronary angiography revealed severe disease involving the first diagonal/ramus intermedius and underwent successful coronary stenting Hypertension No evidence for acute myocardial infarction Suggest If her blood pressure is within normal limits in the mid day and she may go home and follow-up with me next week to 81 mg of aspirin Plavix and 50 mg Losartan Atorvastatin 80 mg by mouth daily Objective - Vital Signs Vital signs: Vital Signs Temp 98.7 F 07/13/17 04:00 Pulse 77 07/13/17 08:00 Resp 16 07/13/17 08:00 BP 158/76 07/13/17 08:00 Pulse Ox 99 07/13/17 08:00 Intake & Output 07/12/17 07/13/17 07/13/17 18:59 06:59 18:59 Intake Total 275.6 240 Balance 275.6 240 Weight 69.4 kg 69.4 kg Intake: IV 275.6 Sodium Chloride 0.9% 1, 100 000 ml @ 100 mls/hr IV . Q10H [facility] Rx#:[id number] Oral 240 Other: Voiding Method Toilet Toilet Toilet # Voids 2 - Labs CBC & Chem 7: 07/13/17 05:56 07/13/17 05:56 Labs: Abnormal Lab Results - Last 24 Hours (Table) 07/13/17 Range/Units 05:56 Chloride 110 H (98-107) mmol/L Glucose 113 H (74-99) mg/dL
[2017-07-13 13:06] VITALS: BP 143/82; PULSE 77; RESP 16; BMI 23.9
--- NOTE | 2017-07-13 23:01 | DS ---
DISCHARGE SUMMARY DATE OF ADMISSION: July 11, 2017 DATE OF DISCHARGE: July 13, 2017 FINAL DIAGNOSES: 1. Unstable angina. 2. Essential hypertension. 3. Coronary artery disease, now with stents. PROCEDURE: Cardiac catheterization with angioplasty stent to the ramus intermedius. HOSPITAL COURSE: This patient presented with unstable angina, had a positive stress test. Cardiac catheterization led to angioplasty stenting to the ramus intermedius. 2D echo showed preserved LV function. The patient's blood pressure medications were adjusted. No further cardiac symptoms. EXAM: Lungs are clear. Cardiovascular 1st and 2nd sounds normal. CONSULTATION: Dr. Nahun Sánchez from Cardiology and Dr. Mays from interventional cardiology. DISCHARGE MEDICATIONS: 1. Aspirin 81 mg p.o. daily. 2. Lipitor 80 mg p.o. daily. 3. Plavix 75 mg p.o. daily. 4. Cozaar 50 mg p.o. daily. 5. Lopressor 25 mg p.o. b.i.d. 6. Nitroglycerin 0.4 sublingual q.5 p.r.n. FOLLOW UP: With Dr. Sánchez on July 20, 2017. Follow up with Dr. Schaefer in 3 days and further post cardiac cath orders per Cardiology. Copy to Dr. Schaefer. MMODL / IJN: [id number] /
--- NOTE | 2017-07-23 22:01 | P.PCN ---
Date of Procedure: 07/12/17 Preoperative Diagnosis: Chest pain and positive stress test Postoperative Diagnosis: Critical lesion involving the intermediate coronary artery Procedure(s) Performed: Cardiac catheterization without left ventriculography Description of Procedure: HISTORY: This is a 61-year-old female who was admitted to the hospital with recurrent chest pains. Patient had a stress echocardiogram which was sized of ischemia involving the lateral wall. Patient is advised to have cardiac catheterization for definitive diagnosis CONSENT:I have discussed the risks, benefits and alternative therapies for the above-mentioned procedure and for both sedation/analgesia as well as necessary blood product administration, if indicated, as they pertain to this patient. The patient has indicated understanding and acceptance of the risks and procedures discussed. PROCEDURE: Patient was brought to the lab in a fasting state. Patient was given some IV sedation. The right groin is infiltrated with lidocaine and right femoral artery was entered using Seldinger technique. A 6-Guyanese catheter was left in place and selective coronary arteriography and left ventriculography was performed. Patient tolerated the procedure well. Femoral angiogram was performed and Angio-Seal was applied for hemostasis. No immediate complications were noted and patient was transferred to [facility] in a stable condition Conscious Sedation: Versed 1 mg Fentanyl 50 g Duration and 25 minutes HEMODYNAMICS: . The aortic pressure is about 130/70. Left ankle end-diastolic pressure is about 10-15. There was no gradient across the aortic valve SELECTIVE CORONARY ARTERIOGRAPHY: LEFT MAIN: This is a normal in length and free of any occlusive disease THE LEFT ANTERIOR DESCENDING CORONARY ARTERY: This is a small to moderate caliber vessel which is tortuous in its course and seemed to be free of any significant occlusive disease THE LEFT CIRCUMFLEX AND IS CORONARY ARTERY: . This is a good caliber vessel with mild disease in the proximal portion. Use ice to 2 OM branches and the PDA branch. This is a dominant vessel. There doesn't seem to be any Sigmund focal disease. The intermediate coronary artery. This is a moderate caliber vessel with about 70-80% stenosis in the proximal portion. THE RIGHT CORONARY ARTERY: . Small and nondominant vessel LEFT VENTRICULOGRAPHY: Not performed FINAL IMPRESSION: . Critical lesion involving the intermediate coronary artery. Otherwise no critical disease PLAN: Stent placement of the intermediate coronary artery being done by Dr. Figueroa PROGNOSIS: Fair
== END 2017-07-13 12:18 | disposition home or self-care (01) | DRG 247 ==
LOC: EC 05:48 → 3OBS 08:24 → OBSVTOIN 07-11 16:24 → 6SEL 07-12 12:32
PROVIDERS: ADMIT Hospitalist; ATTEND Hospitalist
PROC: B2111ZZ Fluoroscopy of Multiple Coronary Arteries using Low Osmolar Contrast (ICD-10-PCS; 2017-07-12)
PROC: 027034Z Dilation of Coronary Artery, One Artery with Drug-eluting Intraluminal Device, Percutaneous Approach (ICD-10-PCS; principal; 2017-07-12 09:08)
PROC: 4A023N7 Measurement of Cardiac Sampling and Pressure, Left Heart, Percutaneous Approach (ICD-10-PCS; 2017-07-12 09:08)
DX: I25.110 Atherosclerotic heart disease of native coronary artery with unstable angina pectoris (principal); E78.00 Pure hypercholesterolemia, unspecified; E78.5 Hyperlipidemia, unspecified; I10 Essential (primary) hypertension; K80.20 Calculus of gallbladder without cholecystitis without obstruction; R73.03 Prediabetes; Z79.899 Other long term (current) drug therapy; Z90.49 Acquired absence of other specified parts of digestive tract; Z82.49 Family history of ischemic heart disease and other diseases of the circulatory system
CPT/HCPCS: 36415; 71275; 74177; 80048; 80053; 80061; 82550; 82553; 83690; 83735; 83880; 84484; 85025; 85379; 85610; 85730; 93005; 93017; 93306; 93350; 93458; 96361; 96374; 99285

== ENCOUNTER 2017-09-06 06:49 | Observation (INO) | payer BC ==
[2017-09-06] MEDS ORDERED: NITROGLYCERIN OINT 1 INCH/GM PACKET TOPICAL STA (07:21)
[2017-09-06] MEDS ORDERED: ASPIRIN 81 MG PO STA (07:21)
--- NOTE | 2017-09-06 07:24 | ED ---
General Adult HPI - General Chief complaint: Chest Pain Stated complaint: chest pain, sob Time Seen by Provider: 09/06/17 07:00 Source: patient, RN notes reviewed Mode of arrival: wheelchair Limitations: no limitations - History of Present Illness Initial comments: This is a 62-year-old female with a past medical history significant for a previous cardiac stents hypertension and prediabetic. Patient also strong family history for heart disease. Patient comes into the this stating that she started having some chest pain shortness of breath and clammy feeling radiation up into her neck on Tuesday after exertion it again occur yesterday and again this morning. Patient states currently she is chest pain-free and she's not short of breath while sitting here. Patient states these symptoms always occurred after exertion. Patient denies any abdominal pain patient denies nausea vomiting diarrhea. Patient states she has not had a cold recently denies any recent fever chills or cough. Patient denies any headache patient denies numbness or weakness. Patient denies lightheadedness dizziness or near syncopal episode. Patient denies any skin lesions or rashes. Patient denies any swelling to her legs or calf tenderness. Patient denies any recent trips or travel. - Related Data Home Medications Medication Instructions Recorded Confirmed Cholecalciferol (Vitamin D3) 2,000 unit PO DAILY 09/06/17 09/06/17 [Vitamin D3] Losartan Potassium [Cozaar] 25 mg PO DAILY 09/06/17 09/06/17 Previous Rx's Medication Instructions Recorded Aspirin 81 mg PO DAILY #1 chewable 07/13/17 Atorvastatin [Lipitor] 80 mg PO DAILY #30 tab 07/13/17 Clopidogrel [Plavix] 75 mg PO DAILY #30 tab 07/13/17 Nitroglycerin Sl Tabs [Nitrostat] 0.4 mg SUBLINGUAL Q5M PRN #25 tab 07/13/17 Allergies Allergy/AdvReac Type Severity Reaction Status Date / Time No Known Allergies Allergy Verified 09/06/17 07:09 Review of Systems ROS Statement: Those systems with pertinent positive or pertinent negative responses have been documented in the HPI. ROS Other: All systems not noted in ROS Statement are negative. Past Medical History Past Medical History: Chest Pain / Angina, Hyperlipidemia, Hypertension History of Any Multi-Drug Resistant Organisms: None Reported Past Surgical History: Appendectomy, Section, Heart Catheterization With Stent Past Anesthesia/Blood Transfusion Reactions: No Reported Reaction Past Psychological History: No Psychological Hx Reported Smoking Status: Never smoker Past Alcohol Use History: None Reported Past Drug Use History: None Reported - Past Family History Mother Family Medical History: Cancer, COPD, Coronary Artery Disease (CAD), Myocardial Infarction ([place]) Additional Family Medical History / Comment(s): colon cancer Father Family Medical History: Cancer, Coronary Artery Disease (CAD), Diabetes Mellitus , Hypertension, Myocardial Infarction ([place]) Additional Family Medical History / Comment(s): leukemia Brother(s) Family Medical History: Coronary Artery Disease (CAD), Myocardial Infarction ([place] ), Prostate Disorder Additional Family Medical History / Comment(s): brother had [place] at age 3636 years old General Exam - General Exam Comments Initial Comments: GENERAL: Patient is well-developed and well-nourished. Patient is nontoxic and well- hydrated and is in mild distress. ENT: Neck is soft and supple. No significant lymphadenopathy is noted. Oropharynx is clear. Moist mucous membranes. Neck has full range of motion without eliciting any pain. EYES: The sclera were anicteric and conjunctiva were pink and moist. Extraocular movements were intact and pupils were equal round and reactive to light. Eyelids were unremarkable. PULMONARY: Unlabored respirations. Good breath sounds bilaterally. No audible rales rhonchi or wheezing was noted. CARDIOVASCULAR: There is a regular rate and rhythm without any murmurs gallops or rubs. ABDOMEN: Soft and nontender with normal bowel sounds. No palpable organomegaly was noted. There is no palpable pulsatile mass. SKIN: Skin is clear with no lesions or rashes and otherwise unremarkable. NEUROLOGIC: Patient is alert and oriented x3. Cranial nerves II through XII are grossly intact. Motor and sensory are also intact. Normal speech, volume and content. Symmetrical smile. MUSCULOSKELETAL: Normal extremities with adequate strength and full range of motion. No lower extremity swelling or edema. No calf tenderness. LYMPHATICS: No significant lymphadenopathy is noted PSYCHIATRIC: Normal psychiatric evaluation. Normal interpersonal interactions appears functionally intact in deals appropriately with others. No signs of depression. No signs of anxiety. Limitations: no limitations Course Vital Signs 09/06/17 09/06/17 06:54 07:29 Temperature 97.9 F Pulse Rate 77 72 Respiratory 16 16 Rate Blood Pressure 164/81 150/84 O2 Sat by Pulse 100 100 Oximetry Medical Decision Making - Medical Decision Making EKG shows normal sinus rhythm at 76 bpm IA interval is 156 dresses 84 QT interval 398 QTC is 447. Patient's EKG shows no acute abnormalities. No ST segment elevation or depression. Chest x-ray shows no acute normalities I started patient on heparin because of her intermittent symptoms associated with exercise. I spoke with Dr. Azar admitted the patient wrote admitting orders. I continue the heparin and aspirin Nitropaste on the floor. I consult to cardiology. - Lab Data Result diagrams: 09/06/17 06:59 09/06/17 06:59 Lab Results 09/06/17 09/06/17 09/06/17 Range/Units 06:59 06:59 06:59 WBC 6.0 (3.8-10.6) k/uL RBC 5.14 (3.80-5.40) m/uL Hgb 14.9 (11.4-16.0) gm/dL Hct 44.4 (34.0-46.0) % MCV 86.3 (80.0-100.0) fL MCH 29.0 (25.0-35.0) pg MCHC 33.7 (31.0-37.0) g/dL RDW 12.5 (11.5-15.5) % Plt Count 291 (150-450) k/uL Neutrophils % 72 % Lymphocytes % 22 % Monocytes % 5 % Eosinophils % 0 % Basophils % 0 % Neutrophils # 4.3 (1.3-7.7) k/uL Lymphocytes # 1.3 (1.0-4.8) k/uL Monocytes # 0.3 (0-1.0) k/uL Eosinophils # 0.0 (0-0.7) k/uL Basophils # 0.0 (0-0.2) k/uL PT (9.0-12.0) sec INR (<1.2) APTT (22.0-30.0) sec Sodium 145 (137-145) mmol/L Potassium 4.2 (3.5-5.1) mmol/L Chloride 106 (98-107) mmol/L Carbon Dioxide 25 (22-30) mmol/L Anion Gap 14 mmol/L BUN 14 (7-17) mg/dL Creatinine 0.73 (0.52-1.04) mg/dL Est GFR (CKD-EPI)AfAm >90 (>60 ml/min/1.73 sqM) Est GFR (CKD-EPI)NonAf 89 (>60 ml/min/1.73 sqM) Glucose 139 H (74-99) mg/dL Calcium 10.2 (8.4-10.2) mg/dL Magnesium 2.1 (1.6-2.3) mg/dL Total Bilirubin 0.9 (0.2-1.3) mg/dL AST 26 (14-36) U/L ALT 40 (9-52) U/L Alkaline Phosphatase 63 (38-126) U/L Total Creatine Kinase 93 (30-135) U/L CK-MB (CK-2) 0.7 (0.0-2.4) ng/mL CK-MB (CK-2) Rel Index 0.8 Troponin I <0.012 (0.000-0.034) ng/mL Total Protein 7.4 (6.3-8.2) g/dL Albumin 4.7 (3.5-5.0) g/dL Lipase 177 (23-300) U/L 09/06/17 Range/Units 06:59 WBC (3.8-10.6) k/uL RBC (3.80-5.40) m/uL Hgb (11.4-16.0) gm/dL Hct (34.0-46.0) % MCV (80.0-100.0) fL MCH (25.0-35.0) pg MCHC (31.0-37.0) g/dL RDW (11.5-15.5) % Plt Count (150-450) k/uL Neutrophils % % Lymphocytes % % Monocytes % % Eosinophils % % Basophils % % Neutrophils # (1.3-7.7) k/uL Lymphocytes # (1.0-4.8) k/uL Monocytes # (0-1.0) k/uL Eosinophils # (0-0.7) k/uL Basophils # (0-0.2) k/uL PT 10.3 (9.0-12.0) sec INR 1.1 (<1.2) APTT 23.1 (22.0-30.0) sec Sodium (137-145) mmol/L Potassium (3.5-5.1) mmol/L Chloride (98-107) mmol/L Carbon Dioxide (22-30) mmol/L Anion Gap mmol/L BUN (7-17) mg/dL Creatinine (0.52-1.04) mg/dL Est GFR (CKD-EPI)AfAm (>60 ml/min/1.73 sqM) Est GFR (CKD-EPI)NonAf (>60 ml/min/1.73 sqM) Glucose (74-99) mg/dL Calcium (8.4-10.2) mg/dL Magnesium (1.6-2.3) mg/dL Total Bilirubin (0.2-1.3) mg/dL AST (14-36) U/L ALT (9-52) U/L Alkaline Phosphatase (38-126) U/L Total Creatine Kinase (30-135) U/L CK-MB (CK-2) (0.0-2.4) ng/mL CK-MB (CK-2) Rel Index Troponin I (0.000-0.034) ng/mL Total Protein (6.3-8.2) g/dL Albumin (3.5-5.0) g/dL Lipase (23-300) U/L Critical Care Time Critical Care Time: Yes Total Critical Care Time: 35 Disposition Clinical Impression: Unstable angina pectoris Disposition: ADMITTED IP TO THIS HOSP Referrals: Greyson Schaefer DO [Primary Care Provider] - 1-2 days Time of Disposition: 08:41
[2017-09-06 07:34] LABS: Basophils % (A) 0 %; Eosinophils % (A) 0 %; HCT 44.4 % (34.0-46.0); HGB 14.9 gm/dL (11.4-16.0); Lymphocytes # (A) 1.3 k/uL (1.0-4.8); Lymphocytes % (A) 22 %; MCHC 33.7 g/dL (31.0-37.0); MCV 86.3 fL (80.0-100.0); Mean Platelet Volume 7.7; Monocytes # (A) 0.3 k/uL (0-1.0); Monocytes % (A) 5 %; Neutrophils # (A) 4.3 k/uL (1.3-7.7); Neutrophils % (A) 72 %; Platelet Count 291 k/uL (150-450); RBC 5.14 m/uL (3.80-5.40); RDW 12.5 % (11.5-15.5)
[2017-09-06 07:46] LABS: ALT 40 U/L (9-52); AST 26 U/L (14-36); Albumin 4.7 g/dL (3.5-5.0); Alkaline Phosphatase 63 U/L (38-126); Anion Gap 14 mmol/L; Blood Urea Nitrogen 14 mg/dL (7-17); Calcium 10.2 mg/dL (8.4-10.2); Carbon Dioxide 25 mmol/L (22-30); Chloride 106 mmol/L (98-107); Glucose 139 mg/dL (74-99); Lipase 177 U/L (23-300); Magnesium 2.1 mg/dL (1.6-2.3); Potassium 4.2 mmol/L (3.5-5.1); Sodium 145 mmol/L (137-145); Total Bilirubin 0.9 mg/dL (0.2-1.3); Total Protein 7.4 g/dL (6.3-8.2)
[2017-09-06 07:52] LABS: INR 1.1 (<1.2); Partial Thromboplastin Time 23.1 sec (22.0-30.0); Prothrombin Time 10.3 sec (9.0-12.0)
[2017-09-06 07:56] LABS: Creatine Kinase 93 U/L (30-135)
--- NOTE | 2017-09-06 07:57 | XR ---
EXAMINATION TYPE: XR chest 2V DATE OF EXAM: 09/06/2017 COMPARISON: 11/28/2014 HISTORY: 62-year-old female with chest pain TECHNIQUE: PA and lateral views FINDINGS: The cardiomediastinal silhouette, aorta, and pulmonary vasculature are within normal limits. Mild dif fuse interstitial prominence is unchanged. Otherwise, lungs and pleural spaces are clear. IMPRESSION: Chronic changes without acute cardiopulmonary process.
[2017-09-06 08:08] LABS: Creatine Kinase MB 0.7 ng/mL (0.0-2.4); Troponin I <0.012 ng/mL (0.000-0.034)
[2017-09-06] MEDS ORDERED: HEPARIN SODIUM,PORCINE 5,000 UNIT/ML 1 ML VIAL IV ONE (08:38)
[2017-09-06] MEDS ORDERED: HEPARIN SODIUM,PORCINE 25,000 UNIT in DEXTROSE 5% IN WATER 500 ML IV SCH ×2 (08:45)
[2017-09-06] MEDS ORDERED: NITROGLYCERIN SL TABS 0.4 MG TAB SUBLINGUAL PRN (08:46)
[2017-09-06] MEDS ORDERED: RX INFO: IV CONTRAST WAS GIVEN 1 EACH MISC MISCELLANE PRN (10:56)
[2017-09-06] MEDS ORDERED: NITROGLYCERIN OINT 1 INCH/GM PACKET TOPICAL SCH (12:00)
--- NOTE | 2017-09-06 12:22 | CT ---
EXAMINATION TYPE: CT angio chest DATE OF EXAM: 09/06/2017 COMPARISON: 07/09/2017 HISTORY: Chest pain and elevated d-dimer CT DLP: 179.6 mGycm CONTRAST: CT chest with contrast and 3D reconstruction with MIP imaging is performed with IV Contrast, patient injected with 100 mL of Isovue 370. Contrast-enhanced CT of the chest was performed through the course of the pulmonary arteries with ashley g and mediastinal window settings submitted. 3D reconstruction with MIP imaging was also performed. PULMONARY ARTERIES: The pulmonary arteries and their major tributaries are patent. I do not see lauro dence for sizable filling defect to suggest pulmonary embolic process. LUNGS: The lungs are clear and free of infiltrate. No evidence for atelectasis. No pulmonary nodule or mass is detected. No pleural effusion. MEDIASTINUM: Thoracic aorta is of normal caliber,however, evaluation is limited given timing of the contrast bolus. If there is concern for thoracic aortic pathology consider PIERO. Correlate clinicall y . The heart is not enlarged. No evidence for mediastinal mass. No mediastinal lymph nodes greater than 1cm. Thyroid gland nodularity. HILAR STRUCTURES: No evidence for mass. No hilar lymph nodes greater than 1 cm. UPPER ABDOMEN: No significant abnormality is seen. IMPRESSION: 1. No evidence for Pulmonary embolism at this time.
[2017-09-06 12:56] LABS: Creatine Kinase 69 U/L (30-135)
[2017-09-06 13:08] LABS: Creatine Kinase MB 0.5 ng/mL (0.0-2.4); Troponin I <0.012 ng/mL (0.000-0.034)
--- NOTE | 2017-09-06 13:34 | P.CRDCN ---
History of Present Illness Consult date: 09/06/17 History of present illness: Mrs. Merchant is a pleasant 62-year-old female past medical history significant for coronary artery disease with recent angioplasty of ramus 06/2017 , hypertension and dyslipidemia. She was recently admitted to [facility] in June with chest discomfort and underwent stress testing that was positive. Subsequent catheterization revealed a blockage of 70-80% in the ramus that was stented by Dr. Mays. She also had mild non-obstructve disease of the proximal circumflex artery. She has been maintained on plavix, aspirin, losartan and atorvastatin since that time. Last week she saw her PCP and was describing symptoms of dizziness at times and she would check her blood pressure at home and it was on the low side. Her losartan dose was cut down from 50 to 25 mg daily. Since then she hasn't noticed anymore dizziness. However, starting on Tuesday she was walking outside as she typically does and then went to unload some groceries and she felt extremely fatigued and short of breath. She sat down and immediately upon sitting she started having a sharp mid-sternal pain in the chest that radiated through to her back. The shortness of breath and pain persisted for approximately 5 minutes into rest and ultimately subsided on its own. She continued to feel generalized fatigue for the rest of the weekend. Yesterday she was working in the yard and again felt similar with extreme fatigue, shortness of breath and pain in the mid-sternal region. She again sat down and the symptoms persisted. She was unable to get sleep last night because she kept feeling diaphoretic in her hands and feet as well as palpitations. She does state that these symptoms are entirely different than how she felt prior to undergoing angioplasty. EKG reveals sinus mechansim with no acute ST or T-wave abnormalities. Chest xray is negative for an acute cardiopulmonary process. Laboratory data reviewed, hemoglobin 14.9, platelets 291, d-dimer 1.3, sodium 135, potassium 4.2, magnesium 2.1, creatinine 0.73, cardiac enzymes negative 2. Current cardiac medications include losartan 25 mg daily, Plavix 75 mg daily, atorvastatin 80 mg daily and aspirin 81 mg daily. Review of Systems At the time of my exam: CONSTITUTIONAL: Denies fever. Denies chills. EYES: Denies blurred vision. Denies vision changes. Denies eye pain. EARS, NOSE, MOUTH & THROAT: Denies headache. Denies sore throat. Denies ear pain. CARDIOVASCULAR: Denies chest pain. Denies shortness of breath. Denies orthopnea. Denies PND. Denies palpitations. RESPIRATORY: Denies cough. GASTROINTESTINAL: Denies abdominal pain. Denies diarrhea. Denies constipation. Denies nausea. Denies vomiting. MUSCULOSKELETAL: Denies myalgias. INTEGUMENTARY: Denies pruitis. Denies rash. NEUROLOGIC: Denies numbness. Denies tingling. Denies weakness. PSYCHIATRIC: Denies anxiety. Denies depression. ENDOCRINE: Denies fatigue. Denies weight change. Denies polydipsia. Denies polyurina. GENITOURINARY: Denies burning, hematuria or urgency with micturation. HEMATOLOGIC: Denies history of anemia. Denies bleeding. Past Medical History Past Medical History: Coronary Artery Disease (CAD), Chest Pain / Angina, Hyperlipidemia, Hypertension Additional Past Medical History / Comment(s): Ocular migraines, vertigo at times , benign colon polyp, "pre" diabetic. History of Any Multi-Drug Resistant Organisms: None Reported Past Surgical History: Appendectomy, Section, Heart Catheterization With Stent Additional Past Surgical History / Comment(s): 06/14/17 PCI/stent, x2 , colonoscopy with benign polypectomy. Past Anesthesia/Blood Transfusion Reactions: No Reported Reaction Date of Last Stent Placement:: 07/12/17 Smoking Status: Never smoker - Past Family History Mother Family Medical History: Cancer, COPD, Coronary Artery Disease (CAD), Myocardial Infarction (HI) Additional Family Medical History / Comment(s): Mother had a HI at the age of 63 or 64yrs. She had colon cancer Father Family Medical History: Cancer, Coronary Artery Disease (CAD), Diabetes Mellitus , Hypertension, Myocardial Infarction (HI) Additional Family Medical History / Comment(s): Father had a HI at the age of 63 or 64yrs. He had leukemia Brother(s) Family Medical History: Coronary Artery Disease (CAD), Myocardial Infarction (HI ), Prostate Disorder Additional Family Medical History / Comment(s): brother had HI at age 3636 years old Medications and Allergies Home Medications Medication Instructions Recorded Confirmed Type Aspirin 81 mg PO DAILY #1 chewable 07/13/17 09/06/17 Rx Atorvastatin [Lipitor] 80 mg PO DAILY #30 tab 07/13/17 09/06/17 Rx Clopidogrel [Plavix] 75 mg PO DAILY #30 tab 07/13/17 09/06/17 Rx Nitroglycerin Sl Tabs [Nitrostat] 0.4 mg SUBLINGUAL Q5M PRN #25 tab 07/13/1712/17 Rx Cholecalciferol (Vitamin D3) 2,000 unit PO DAILY 09/06/17 09/06/17 History [Vitamin D3] Losartan Potassium [Cozaar] 25 mg PO DAILY 09/06/17 09/06/17 History Allergies Allergy/AdvReac Type Severity Reaction Status Date / Time No Known Allergies Allergy Verified 09/06/17 07:09 Physical Exam Vitals: Vital Signs Temp Pulse Pulse Resp BP BP Pulse Ox 09/06/17 11:15 97.5 F L 75 17 96/61 98 09/06/17 10:39 73 18 107/61 99 09/06/17 09:45 98.3 F 71 16 108/66 96 09/06/17 08:41 72 18 113/66 97 09/06/17 07:29 72 16 150/84 100 09/06/17 06:54 97.9 F 77 16 164/81 100 Intake and Output 09/05/17 09/06/17 09/06/17 22:59 06:59 14:59 Other: Weight 67.132 kg 67.1 kg Blood pressure 96/61 heart rate 75 afebrile maintaining oxygen saturation on nasal cannula 2 L GENERAL: This is a 62-year-old female in no apparent distress at the time of my examination. HEENT: Head is atraumatic, normocephalic. Pupils are equal, round. Sclerae anicteric. Conjunctivae are clear. Mucous membranes of the mouth are moist. Neck is supple. There is no jugular venous distention. No carotid bruit is heard. LUNGS: Clear to auscultation no wheezes, rales or rhonchi. No chest wall tenderness is noted on palpation or with deep breathing. HEART: Regular rate and rhythm without murmurs, rubs or gallops. S1 and S2 heard. ABDOMEN: Soft, nontender. Bowel sounds are heard. No organomegaly noted. EXTREMITIES: No evidence of peripheral edema and no calf tenderness noted. VASCULAR: Radial and dorsalis pedis pulses palpated, no evidence of clubbing. NEUROLOGIC: Patient is awake, alert and oriented x3. Results 09/06/17 06:59 09/06/17 06:59 Cardiac Enzymes 09/06/17 09/06/17 09/06/17 Range/Units 06:59 06:59 12:21 AST 26 (14-36) U/L CK-MB (CK-2) 0.7 0.5 (0.0-2.4) ng/mL Troponin I <0.012 <0.012 (0.000-0.034) ng/mL Coagulation 09/06/17 Range/Units 06:59 PT 10.3 (9.0-12.0) sec APTT 23.1 (22.0-30.0) sec CBC 09/06/17 Range/Units 06:59 WBC 6.0 (3.8-10.6) k/uL RBC 5.14 (3.80-5.40) m/uL Hgb 14.9 (11.4-16.0) gm/dL Hct 44.4 (34.0-46.0) % Plt Count 291 (150-450) k/uL Comprehensive Metabolic Panel 09/06/17 Range/Units 06:59 Sodium 145 (137-145) mmol/L Potassium 4.2 (3.5-5.1) mmol/L Chloride 106 (98-107) mmol/L Carbon Dioxide 25 (22-30) mmol/L BUN 14 (7-17) mg/dL Creatinine 0.73 (0.52-1.04) mg/dL Glucose 139 H (74-99) mg/dL Calcium 10.2 (8.4-10.2) mg/dL AST 26 (14-36) U/L ALT 40 (9-52) U/L Alkaline Phosphatase 63 (38-126) U/L Total Protein 7.4 (6.3-8.2) g/dL Albumin 4.7 (3.5-5.0) g/dL Current Medications Generic Name Dose Route Start Last Admin Trade Name Freq PRN Reason Stop Dose Admin Aspirin 325 mg 09/07/17 09:00 Aspirin PO DAILY CAROL Heparin Sodium (Porcine) 25, 500 mls @ 16.11 mls/hr 09/06/17 08:45 09/06/17 09:52 000 unit/ Dextrose/Water IV 12 units/kg/hr .Q24H CAROL 16.11 mls/hr Protocol Administration 12 UNITS/KG/HR Miscellaneous Information 1 each 09/06/17 10:56 Rx Info: Iv Contrast Was Given MISCELLANE 09/08/17 10:56 DAILY PRN Per Protocol Nitroglycerin 1 inch 09/06/17 12:00 09/06/17 11:47 Nitro-Bid Oint TOPICAL Not Given Q6HR [facility] Nitroglycerin 0.4 mg 09/06/17 08:46 Nitrostat SUBLINGUAL Q5M PRN Chest Pain Intake and Output 09/05/17 09/06/17 09/06/17 22:59 06:59 14:59 Other: Weight 67.132 kg 67.1 kg Patient Weight 09/07/17 06:59 Weight 67.1 kg 09/06/17 06:59 09/06/17 06:59 Assessment and Plan Assessment: ASSESSMENT 1. Chest pain and shortness of breath with exertion 2. History of coronary artery disease recent angioplasty of the ramus intermedius June 2017 3. Hypertension 4. Dyslipidemia PLAN D-dimer was checked and came in to be elevated so CTA was performed and is negative for PE. Continue to obtain serial cardiac enzymes to rule out an acute event. Discontinue nitropaste and increase activity to assess for reoccurrence of chest pain. If cardiac enzymes are unremarkable and she is chest pain free with activity we will proceed with stress test tomorrow. However, if she has chest pain with exertion we will proceed with coronary angiography. NPO after midnight. Resume losartan 25 mg, aspirin 81 mg, plavix 75 mg and atorvastatin 80mg daily. Thank you kindly for this consultation. Nurse Practitioner note has been reviewed, I agree with a documented findings and plan of care. Patient was seen and examined.
[2017-09-06] MEDS: CLOPIDOGREL 75 MG TAB PO SCH (15:51)
[2017-09-06] MEDS: ATORVASTATIN 80 MG TAB PO SCH (15:51)
[2017-09-06] MEDS: LOSARTAN 25 MG TAB PO SCH (15:51)
[2017-09-06 21:29] LABS: Creatine Kinase 63 U/L (30-135)
[2017-09-06 21:39] LABS: Creatine Kinase MB 0.5 ng/mL (0.0-2.4); Troponin I <0.012 ng/mL (0.000-0.034)
--- NOTE | 2017-09-06 22:27 | HP ---
HISTORY AND PHYSICAL DATE OF ADMISSION: 09/06/2017 PRESENTING COMPLAINT: Chest pain. HISTORY OF PRESENTING COMPLAINT: This is a very pleasant 62-year-old patient of Dr. Schaefer who was here in June of this year with chest pain. The patient did undergo angioplasty with stenting to the ramus intermedius. Two-D echo had shown preserved LV function. Patient's other chronic stable medical conditions include hyperlipidemia, hypertension and migraines. Patient on Tuesday (this was 4 days ago) was working outside and just felt tired with chest pain after she sat down. It got better. Subsequently during the next day she was running her usual errands, doing grocery, etc., and again she became short of breath with chest pain and decided to sit down. Yesterday patient had episodes of palpitation, with the same feeling coming on for a variable duration, better at rest and worse with exertion. 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 Sánchez, but decided to come in today because of her symptoms. The patient's troponins have been negative until now. The patient did have a chest CTA that was negative for PE in the ER. The patient was admitted with unstable angina. REVIEW OF SYSTEMS: CONSTITUTIONAL: Tired. HEENT: None. RESPIRATORY: As above. CARDIOVASCULAR: As above. GASTROINTESTINAL: None. GENITOURINARY: None. MUSCULOSKELETAL: None. DERMATOLOGICAL: None. HEMATOLOGICAL: None. LYMPHATICS: None. PSYCHIATRY: None. NEUROLOGICAL: None. PAST MEDICAL HISTORY: 1. Hypertension. 2. Hyperlipidemia. 3. Migraines. 4. Coronary artery disease with stent to the ramus intermedius. SOCIAL HISTORY: No smoking. No alcohol. Used to sell real estate. . FAMILY HISTORY: Both of patient's parents had heart disease in their 60s. Patient had heart disease at the age of 36. Additional history of colon cancer and COPD. ALLERGIES: NONE. HOME MEDICATIONS: 1. Nitrostat 0.4 sublingually q.5 p.r.n. 2. Cozaar 25 mg p.o. daily. 3. Vitamin D3 2000 units p.o. daily. 4. Plavix 75 mg p.o. daily. 5. Lipitor 80 mg p.o. daily. 6. Aspirin 81 mg p.o. daily. PHYSICAL EXAMINATION: Temperature 98.1, pulse 68, respiration 16, blood pressure 115/61, pulse ox 97% on room air. GENERAL APPEARANCE: Average build. Lying in bed. Comfortable. EYES: Pupils equal. Conjunctivae normal. HEENT: External appearance of nose and ears normal. Oral cavity normal. NECK: JVD not raised. Mass not palpable. RESPIRATORY: Effort normal. Lungs are clear. CARDIOVASCULAR: First and second sounds normal. No edema. ABDOMEN: Soft, nontender. Liver and spleen not palpable. LYMPHATIC: No lymph node palpable in neck or axillae. PSYCHIATRY: Alert and oriented x3. Mood and affect normal. NEUROLOGICAL: Pupils equal. Cranial nerves grossly intact. Power and sensation grossly intact. INVESTIGATIONS: White count 6, hemoglobin 14.9, potassium 4.2. BUN and creatinine are normal. Troponin x2 negative. EKG normal sinus rhythm. ASSESSMENT: 1. Unstable angina in a patient with known coronary artery disease with a stent 3 months ago. 2. Essential hypertension. 3. Hyperlipidemia. PLAN: Patient's home medications are resumed. Patient is put on IV heparin. Cardiology was consulted. Care was discussed with the patient. If troponins remain negative, patient will need in that case a stress test. This was discussed with the patient. MMODL / IJN: [id number] /
[2017-09-07 07:41] LABS: Cholesterol 96 mg/dL (<200); HDL Cholesterol 38 mg/dL (40-60); LDL Cholesterol,Calculated 41 mg/dL (0-99); Triglycerides 87 mg/dL (<150)
[2017-09-07] MEDS ORDERED: ASPIRIN 81 MG PO SCH (09:00)
[2017-09-07] MEDS ORDERED: ASPIRIN 325 MG TAB PO SCH (09:00)
[2017-09-07] MEDS: ATORVASTATIN 80 MG TAB PO SCH (11:18)
[2017-09-07] MEDS: LOSARTAN 25 MG TAB PO SCH (11:18)
[2017-09-07] MEDS: CLOPIDOGREL 75 MG TAB PO SCH (11:18)
[2017-09-07 11:48] VITALS: TEMP 98.1
--- NOTE | 2017-09-07 14:20 | P.PN ---
Subjective Progress Note Date: 09/07/17 Mrs. Merchant is a pleasant 62-year-old female past medical history significant for coronary artery disease with recent angioplasty of ramus 06/2017 , hypertension and dyslipidemia. She was recently admitted to [facility] in June with chest discomfort and underwent stress testing that was positive. Subsequent catheterization revealed a blockage of 70-80% in the ramus that was stented by Dr. Mays. She also had mild non-obstructve disease of the proximal circumflex artery. She has been maintained on plavix, aspirin, losartan and atorvastatin since that time. Last week she saw her PCP and was describing symptoms of dizziness at times and she would check her blood pressure at home and it was on the low side. Her losartan dose was cut down from 50 to 25 mg daily. Since then she hasn't noticed anymore dizziness. However, starting on Tuesday she was walking outside as she typically does and then went to unload some groceries and she felt extremely fatigued and short of breath. She sat down and immediately upon sitting she started having a sharp mid-sternal pain in the chest that radiated through to her back. The shortness of breath and pain persisted for approximately 5 minutes into rest and ultimately subsided on its own. She continued to feel generalized fatigue for the rest of the weekend. Yesterday she was working in the yard and again felt similar with extreme fatigue, shortness of breath and pain in the mid-sternal region. She again sat down and the symptoms persisted. She was unable to get sleep last night because she kept feeling diaphoretic in her hands and feet as well as palpitations. She does state that these symptoms are entirely different than how she felt prior to undergoing angioplasty. EKG reveals sinus mechansim with no acute ST or T-wave abnormalities. Chest xray is negative for an acute cardiopulmonary process. Laboratory data reviewed, hemoglobin 14.9, platelets 291, d-dimer 1.3, sodium 135, potassium 4.2, magnesium 2.1, creatinine 0.73, cardiac enzymes negative 2. Current cardiac medications include losartan 25 mg daily, Plavix 75 mg daily, atorvastatin 80 mg daily and aspirin 81 mg daily. 09/07/2017 Mrs. Merchant is seen a examined today sitting up in the chair. Cardiac enzymes came in to be negative x3. She has been up ambulating the halls with no further symptoms of chest pain or shortness of breath. Blood pressure 125/77 heart rate 73. Objective - Vital Signs Vital signs: Vital Signs Temp 98.1 F 09/07/17 11:46 Pulse 78 09/07/17 11:46 Resp 17 09/07/17 11:46 BP 118/69 09/07/17 11:46 Pulse Ox 96 09/07/17 11:46 Intake & Output 09/06/17 09/07/17 09/07/17 18:59 06:59 18:59 Intake Total 127.269 295.272 480 Balance 127.269 295.272 480 Weight 67.1 kg Intake: Intake, IV Titration 127.269 145.272 Amount Heparin Sodium,Porcine 25 127.269 145.272 ,000 unit In Dextrose 5% in Water 500 ml @ 12 UNITS/KG/HR 16.11 mls/hr IV .Q24H [facility] Rx#: [id number] Oral 150 480 Other: Voiding Method Toilet Toilet # Voids 1 - Exam GENERAL: Well-appearing, well-nourished and in no acute distress. NECK: Supple without JVD or thyromegaly. LUNGS: Breath sounds clear to auscultation bilaterally. Respiration equal and unlabored. No wheezes, rales or rhonchi. HEART: Regular rate and rhythm without murmurs, rubs or gallops. S1 and S2 heard. EXTREMITIES: Normal range of motion, no edema. No clubbing or cyanosis. Peripheral pulses intact and strong. - Labs CBC & Chem 7: 09/06/17 06:59 09/06/17 06:59 Labs: Abnormal Lab Results - Last 24 Hours (Table) 09/06/17 09/07/17 09/07/17 Range/Units 17:05 00:18 06:12 APTT 41.2 H 49.6 H (22.0-30.0) sec HDL Cholesterol 38 L (40-60) mg/dL 09/07/17 Range/Units 06:12 APTT 56.2 H (22.0-30.0) sec HDL Cholesterol (40-60) mg/dL Assessment and Plan Assessment: ASSESSMENT 1. Chest pain and shortness of breath with exertion 2. History of coronary artery disease recent angioplasty of the ramus intermedius June 2017 3. Hypertension 4. Dyslipidemia PLAN Discontinue heparin infusion. Schedule for stress echocardiogram to assess for stress induced cardiac ischemia. If this is normal she is stable from a cardiac perspective. Follow up with Dr. Sánchez in 2-3 weeks. Nurse Practitioner note has been reviewed, I agree with a documented findings and plan of care. Patient was seen and examined.
[2017-09-07 15:31] VITALS: BP 124/72; PULSE 68; RESP 18
--- NOTE | 2017-09-07 15:46 | ECHOS ---
STRESS ECHOCARDIOGRAM DATE OF SERVICE: 09/07/2017 INDICATIONS: Chest pain. MEDICATIONS: BASELINE HEART RATE: 74 BASELINE BLOOD PRESSURE: 153/69 MAXIMUM HEART RATE: 155 MAXIMUM BLOOD PRESSURE: 210/76 85% MPHR: 134 100% MPHR: 158 METS: 9.7 MAXIMUM STAGE REACHED: 3 TOTAL EXERCISE TIME: 8 minutes. CLINICAL INFORMATION: STRESS DATA: Pre-testing physical examination showed a heart rate of 74, pressure 153/69 mmHg. Baseline EKG showed sinus mechanism. The patient exercised on the treadmill according to Rito protocol for a total of 8 minutes and achieved 9.7 METS. Max heart rate was 155, which is about 98% of maximum predicted heart rate. Maximum blood pressure was 210/76 mmHg. Clinically the patient did not have any symptoms of chest pain or discomfort during the testing or in the recovery and the EKG did not show any significant ST or T-wave abnormalities consistent with ischemia. ECHOCARDIOGRAM IMAGES: Echocardiogram images from parasternal long axis view, parasternal short axis view, apical 4-chamber and apical 2-chamber views were obtained as the baseline images, at the peak of the heart rate as well as on recovery, and the echocardiogram images showed good augmentation of the left ventricular systolic function without any evidence of wall motion abnormalities consistent with ischemia. CONCLUSION: 1. Good exercise tolerance. 2. Normal EKG in response to exercise. 3. Normal echocardiogram in response to exercise. MMODL / IJN: [id number] /
--- NOTE | 2017-09-08 07:59 | DS ---
DISCHARGE SUMMARY DATE OF ADMISSION: 09/06/2017 DATE OF DISCHARGE: 09/07/2017 FINAL DIAGNOSES: 1. Possible angina in a patient with known coronary artery disease with negative stress test. 2. Coronary artery disease with placement of a stent 3 months ago. 3. Essential hypertension. 4. Hyperlipidemia. HOSPITAL COURSE: This patient with stent placed 3 months ago with known preserved LV function presented with chest pain. Patient did undergo a stress echocardiogram by Dr. Mays that was negative and cleared by them to go home. ON EXAM: Lungs are clear. CARDIOVASCULAR: First and second sounds normal. DISCHARGE MEDICATIONS: 1. Aspirin 81 mg a day. 2. Lipitor 80 mg a day. 3. Plavix 75 mg a day. 4. Nitrostat 0.4 sublingual q.5 p.r.n. 5. Vitamin D3, 2000 units p.o. daily. 6. Cozaar 25 mg a day. Follow up with Dr. Sánchez on 10/05/2017. Follow up with Dr. Schaefer in 3 days. If patient has further symptom, nitrates may have to be added. MMODL / IJN: [id number] /
== END 2017-09-07 17:14 | disposition home or self-care (01) ==
LOC: EC 06:49 → 3OBS 08:46
PROVIDERS: ADMIT Hospitalist; ATTEND Hospitalist
DX: R07.89 Other chest pain (principal); R06.02 Shortness of breath; R42 Dizziness and giddiness; R53.83 Other fatigue; R23.1 Pallor; R61 Generalized hyperhidrosis; R00.2 Palpitations; Z95.5 Presence of coronary angioplasty implant and graft; I10 Essential (primary) hypertension; R73.03 Prediabetes; E78.5 Hyperlipidemia, unspecified; I25.10 Atherosclerotic heart disease of native coronary artery without angina pectoris; G43.B0 Ophthalmoplegic migraine, not intractable; Z86.010 Personal history of colon polyps; Z79.899 Other long term (current) drug therapy; Z80.0 Family history of malignant neoplasm of digestive organs; Z82.49 Family history of ischemic heart disease and other diseases of the circulatory system; Z80.6 Family history of leukemia; Z83.3 Family history of diabetes mellitus; Z82.5 Family history of asthma and other chronic lower respiratory diseases; Z79.82 Long term (current) use of aspirin; Z79.02 Long term (current) use of antithrombotics/antiplatelets; R79.89 Other specified abnormal findings of blood chemistry
CPT/HCPCS: 99291 ×2; 96376 ×2; 96365 ×2; 96366 ×2; 36415; 93005; 93351; 85379; 80061; 80053; 82550; 82553; 83690; 83735; 84484; 85025; 85610; 85730 ×2; 71046; 71275; G0378 ×2; J1644 ×2; Q9967

== ENCOUNTER → 2020-10-07 | Outpatient (CLI) | payer MEDICARE ==
--- NOTE | 2020-10-09 09:02 | MM ---
Reason for exam: screening (asymptomatic). Last mammogram was performed 12 years and 3 months ago. Physical Findings: A clinical breast exam by your physician is recommended on an annual basis and results should be correlated with mammographic findings. MG 3D Screening Mammo W/Cad Bilateral CC and MLO view(s) were taken. Prior study comparison: June 02, 2010, mammogram, performed at [facility]. June 26, 2008, bilateral digital screening mammogram. There are scattered fibroglandular densities. No significant changes when compared with prior studies. ASSESSMENT: Benign, BI-RAD 2 RECOMMENDATION: Routine screening mammogram of both breasts in 1 year.
== END | disposition home or self-care (01) ==
LOC: RADMAMWWP 10:01
PROVIDERS: ATTEND Family Medicine
DX: Z12.31 Encounter for screening mammogram for malignant neoplasm of breast (principal)
CPT/HCPCS: 77063; 77067

== ENCOUNTER 2020-10-22 07:21 | Day surgery (SDC) | payer BC, MEDICARE ==
[2020-10-17 15:08] VITALS: BMI 24.7
[~2020-10-22 07:21] MED LIST: LIDOCAINE 1% (10MG/ML) FOR IV START INTRADERMA PRN
[2020-10-22 07:45] VITALS: TEMP 97.9
[2020-10-22 07:55] LABS: Glucose,Whole Blood 123 mg/dL (75-99)
[2020-10-22] MEDS: LACTATED RINGERS 1,000 ML IV SCH ×2 (07:58→08:28)
[2020-10-22] MEDS ORDERED: PROPOFOL 10 MG/ML 20 ML VIAL IV ONE (08:29)
--- NOTE | 2020-10-22 08:45 | P.PCN ---
Date of Procedure: 10/22/20 Procedure(s) Performed: BRIEF HISTORY: Patient is a 65-year-old pleasant white female scheduled for an elective colonoscopy as a part of screening for colorectal neoplasia. His family history of colon cancer diagnosed in her mother at age 60. PROCEDURE PERFORMED: Colonoscopy. PREOPERATIVE DIAGNOSIS: Screening for colon cancer and family history of colon cancer. IV sedation per Anesthesia. PROCEDURE: After informed consent was obtained, the patient, was brought into the endoscopy unit. IV sedation was administered by Anesthesia under continuous monitoring. Digital rectal examination was normal. Initially the Olympus CF-160 flexible video colonoscope was then inserted in the rectum, gradually advanced into the cecum without any difficulty. Careful examination was performed as the scope was gradually being withdrawn. Ileocecal valve and the appendiceal orifice were visualized and appeared normal. Prep was excellent. Mucosa of the cecum, ascending colon, transverse colon, descending colon, sigmoid colon, and rectum appeared normal. Retroflexion was performed in the rectum and no lesions were seen. The patient tolerated the procedure well. IMPRESSION: Normal-appearing colon from rectum to cecum with no evidence of colorectal neoplasia. RECOMMENDATIONS: Findings of this examination were discussed with the patient as well as a family. She was advised to have a repeat screening colonoscopy every 5 years because of the strong family history of colon cancer.
[2020-10-22 09:13] VITALS: BP 140/72; PULSE 67; RESP 16
== END 2020-10-22 09:24 | disposition home or self-care (01) ==
LOC: ORWHC2ENDO 07:21
PROVIDERS: ATTEND Internal Medicine Gastroenterology
DX: Z12.11 Encounter for screening for malignant neoplasm of colon (principal); Z80.0 Family history of malignant neoplasm of digestive organs; I25.10 Atherosclerotic heart disease of native coronary artery without angina pectoris; I10 Essential (primary) hypertension; E78.5 Hyperlipidemia, unspecified; Z79.899 Other long term (current) drug therapy; R73.03 Prediabetes; G43.B0 Ophthalmoplegic migraine, not intractable; R42 Dizziness and giddiness; Z79.82 Long term (current) use of aspirin
CPT/HCPCS: J2704; G0105